=== PATIENT | female | born 1980 | race Caucasian/White ===

== ENCOUNTER 2017-10-25 10:10 | Emergency (ER) | payer BC ==
[2017-10-25 11:19] VITALS: BP 114/86
[2017-10-25] MEDS ORDERED: Ibuprofen TAB* 600 MG PO ONE (11:37)
--- NOTE | 2017-10-25 12:06 | UC ---
Skin Complaint HPI - HPI Summary HPI Summary: Pt c/o sudden onset of tender right breast. Pt is and is begining to wean. She states that she has a tender "lump" right breast just outside areola, between the 9 - 12 o'clock position. Has previous history of mastitis - History of Current Complaint Chief Complaint: [facility] Time Seen by Provider: 10/25/17 11:35 Stated Complaint: PERSONAL Hx Obtained From: Patient Hx Last Menstrual Period: 10/10/17 ?: No Onset/Duration: Sudden Onset, Still Present Skin Exposure Onset/Duration: Hours Ago Timing: Constant Onset Severity: Moderate Current Severity: Moderate Pain Intensity: 8 Location: Discrete - right breast Character: Pain, Redness Aggravating Factor(s): Touch Alleviating Factor(s): Nothing Associated Signs & Symptoms: Positive: Fever, Chills, Tenderness - Allergy/Home Medications Allergies/Adverse Reactions: Allergies Allergy/AdvReac Type Severity Reaction Status Date / Time No Known Allergies Allergy Verified 10/25/17 11:08 Home Medications: Home Medications Omeprazole CAP* [Prilosec CAP* 20 MG] 20 mg PO DAILY PRN 10/25/17 [History Confirmed 10/25/17] Vitamin TAB* 1 tab PO DAILY 10/25/17 [History Confirmed 10/25/17] Review of Systems Constitutional: Chills Skin: Other - erythema Eyes: Negative ENT: Negative Respiratory: Negative Cardiovascular: Negative Gastrointestinal: Negative Genitourinary: Negative Motor: Negative Neurovascular: Negative Musculoskeletal: Negative Neurological: Negative Psychological: Negative Is Patient Immunocompromised?: No All Other Systems Reviewed And Are Negative: Yes PMH/Surg Hx/FS Hx/Imm Hx Previously Healthy: Yes - Surgical History Surgical History: Yes Surgery Procedure, Year, and Place: x2 - last was 10/31/16 - Family History Known Family History: Positive: Cardiac Disease - Social History Occupation: Employed Full-time - returning to work in next few weeks. Lives: With Family Alcohol Use: Rare Substance Use Type: None Smoking Status (MU): Never Smoked Tobacco Have You Smoked in the Last Year: No Physical Exam Triage Information Reviewed: Yes Appearance: Ill-Appearing, Pain Distress Vital Signs: Initial Vital Signs Temp 99.6 F 10/25/17 11:14 Pulse 91 10/25/17 11:14 Resp 20 10/25/17 11:14 BP 114/86 10/25/17 11:14 Pulse Ox 100 10/25/17 11:14 Vital Signs Reviewed: Yes Eye Exam: Normal ENT Exam: Normal Dental Exam: Normal Neck exam: Normal Respiratory Exam: Normal Cardiovascular Exam: Normal Abdomen Description: Positive: Other: - right breast small, 2 cm diameter erythematous area right breast out side of areola, at 12 o'clock position, tenderness, with palpation right breast 9-12 o'clock position outside of areola. tender mass apreciated right breast 12 o'clock position Course/Dx - Differential Diagnoses - Skin Complaint Differential Diagnoses: Abscess, Cellulitis - Diagnoses Provider Diagnoses: mastitis-right breast Discharge - Discharge Plan Condition: Stable Disposition: HOME Prescriptions: Cephalexin CAP* [Keflex 500 CAP*] 500 mg PO Q8H #30 cap Patient Education Materials: Mastitis (ED) Referrals: Sirisha Higginbotham MD [Primary Care Provider] - If Needed
== END 2017-10-25 11:56 | disposition home or self-care (01) ==
LOC: UCCORT 10:10
DX: N61.0 Mastitis without abscess (principal)
CPT/HCPCS: 99212; A9270-GY; G0463